=== PATIENT | male | born 1945 | race Caucasian/White ===

== ENCOUNTER 2023-12-23 13:33 | Outpatient (REF) | payer MEDICARE, SELFPAY ==
--- NOTE | ~2023-12-23 | MR_ITS ---
EXAMINATION: MR BRAIN WITHOUT CONTRAST CLINICAL INFORMATION: Dementia COMPARISON: None available. TECHNIQUE: MRI of the brain was obtained using routine sequences without contrast. FINDINGS: No acute intracranial hemorrhage or infarct. Encephalomalacic changes in the right frontal operculum, right parietal lobe, and right temporal lobe. Scattered and confluent periventricular and deep white matter T2/FLAIR hyperintensities, nonspecific however commonly seen with small vessel ischemic disease. Diffuse prominence of the sulci with associated ex vacuo dilation of the ventricles compatible with global cerebral atrophy. There is loss of normal flow void through the right petrous and cavernous ICA. No midline shift or hydrocephalus. Cavum septum pellucidum and vergae. No acute extra-axial fluid collections. The osseous structures are unremarkable. Partially empty sella. The pineal gland and remaining midline structures are unremarkable. No orbital pathology. Mild to moderate mucosal thickening of the right maxillary sinus. The mastoid air cells are clear. MR/MR head/brain wo con IMPRESSION: -No acute intracranial abnormalities. -Encephalomalacic changes involving the right MCA territory. -Loss of normal flow void through the right petrous and cavernous ICA most suggestive of chronic occlusion. -Chronic microangiopathy and global cerebral atrophy. Electronically signed by: Eugene Pedersen MD 12/23/2023 02:42 PM EDT
== END 2023-12-23 13:34 | disposition home or self-care (01) ==
LOC: HO.MRI 13:33
PROVIDERS: PCP Internal Medicine; Visit Provider Psychiatry & Neurology Neurology
DX: F03.90 Unspecified dementia, unspecified severity, without behavioral disturbance, psychotic disturbance, mood disturbance, and anxiety (principal)
CPT/HCPCS: 70551

== ENCOUNTER 2025-01-11 15:41 | Outpatient (AMB) | payer MEDICARE, SELFPAY ==
--- NOTE | 2025-01-11 15:44 | A.OFFVIS_ITS ---
Intake Visit Reasons: 2m dementia Accompanied by: Daughter Allergies No Known Allergies Allergy (Verified 01/11/25 15:50) Medication List - Last Reconciled 01/11/25 by Freya Sebastian CNP atorvastatin 80 mg PO BEDTIME bupropion HCl SR 100 mg PO QAM citalopram 20 mg PO DAILY clopidogrel 75 mg PO DAILY fluticasone propionate 50 mcg/actuation 2 sprays intranasal DAILY furosemide 20 mg PO DAILY isosorbide mononitrate ER 30 mg PO DAILY levothyroxine mcg PO lisinopril 10 mg PO DAILY memantine 10 mg PO BID nitroglycerin 0.4 mg sublingual HPI Comments Details: 79-year-old man with moderately severe cognitive dysfunction has significant brain atrophy and a moderate sized right MCA chronic infarct. 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 (With past medical history of hypertension, coronary disease, occluded right internal carotid artery that was discovered in 2015. He was diagnosed with a stroke and near occlusion of left carotid artery. He had left carotid endarterectomy done. His recent CTA done in 2022 revealed significant left ICA stenosis and multiple other areas of intracranial atherosclerotic stenosis.) He was here with his daughter. He was living with his and her health was not that great. He was taking bupropion, no medication side effects. His daughter noted mood was initially better was medication, but not so much anymore. He said mood was okay. He enjoyed reading historical books and was reading book about the Trump administration. He was walking with cane or walker when outside, no falls. Sleep was okay. [facility] Medical History (Updated 01/11/25 @ 15:49 by Freya Sebastian CNP) Cerebral infarct Alcohol abuse Alzheimer dementia Multifactorial dementia Intracranial atherosclerosis Review of Systems Const Denies chills, Denies daytime sleepiness, Denies difficulty sleeping, Denies fatigue, Denies fever(s), Denies frequent falls, Denies headache(s), Denies increased appetite, Denies poor appetite, Denies snoring, Denies weakness, Denies weight gain and Denies weight loss Eyes Denies loss of vision ENT Denies vertigo, Denies dizziness and Denies headache(s) Card Denies chest pain at rest, Denies chest pain with activity, Denies syncope, Denies leg edema and Denies palpitations Resp Denies snoring GI Denies constipation, Denies heartburn, Denies diarrhea and Denies nausea Denies urinary frequency, Denies urinary incontinence and Denies urinary urgency Musc Denies abnormal gait, Denies numbness and Denies tingling Skin/Breast Denies dry skin and Denies rash Neuro Denies abnormal gait, Denies vertigo, Denies dizziness, Denies syncope, Denies frequent falls, Denies headache(s), Denies lack of coordination, Denies loss of vision, Reports memory loss, Denies numbness, Denies restless legs, Denies sei zure-like activity, Denies tingling, Denies paresthesias, Denies tremor(s) and Denies weakness Psych Denies anxiety, Denies depression, Denies auditory hallucinations, Reports memory loss, Denies visual hallucinations and Denies suicidal ideation Endo Denies fatigue and Denies palpitations Physical Exam Const Other: General Appearance:? normal, in no acute distress. Skin:? no rashes, no significant birthmarks. Heart:? S1, S2 normal, no murmurs. Lungs:? clear anteriorly and posteriorly. Extremities:? no edema. Psych:? alert, cooperative with exam. Neuro Other: Mental Status:?Alert and awake with decreased spontaneity and fluency of speech. Comprehension intact. Somewhat flat affect. Cranial Nerves:?Pupils are equal, round and reactive to light. External occular muscles are intact. Visual wise are full. Face is symmetrical. Facial sensations are normal. Tongue is midline. Palate elevates symmetrically. Shoulder shrugging is normal. Hearing to bedside conversation is normal. Sensory Exam:?....? Coordination:?No ataxia,?no titubation.? Gait Exam: Slow and cautious with stooped posture and cane. Cerebellar Signs:?[id number] is okay. Extrapyramidal System:?No tremor, rigidity with normal facial expressions.? Pronator Drift:?Not present.? Involuntary Movements:?No tremors seen.? Speech:?Normal.? Results Reviewed Results Reviewed: MRI brain WO at [facility] [place] in Dec 2023: Mod to sev diff atrophy, large R mid MCA infarct, mild to mod MVD CTA brain and neck at [place] in Feb 2023: 85% L ICA stenosis, occluded R ICA, m ultiple intracranial athesclerotic stenoses. Assessment & Plan Assessment & Plan (1) Multifactorial dementia: Code(s): F03.90 - Unspecified dementia, unspecified severity, without behavioral disturbance, psychotic disturbance, mood disturbance, and anxiety Category: Medical Plan: Discussed option to try increased dose of bupropion, declining at this time. Continue bupropion HCL ER (SR) tablet 100mg 1 tablet in the morning. Continue memantine 10mg 1 tablet twice a day. Stay physically, socially, and intellectually active. (2) Alzheimer dementia: Code(s): G30.9 - Alzheimer's disease, unspecified; F02.80 - Dementia in other diseases classified elsewhere, unspecified severity, without behavioral disturbance, psychotic disturbance, mood disturbance, and anxiety Category: Medical Qualifiers: Alzheimer's disease onset: unspecified onset Dementia severity: unspecified severity Dementia behavioral or psychological symptom: with mood disturbance Qualified Code(s): G30.9 - Alzheimer's disease, unspecified; F02.83 - Dementia in other diseases classified elsewhere, unspecified severity, with mood disturbance (3) Intracranial atherosclerosis: Code(s): I67.2 - Cerebral atherosclerosis Category: Medical (4) History of cerebral infarction: Code(s): Z86.73 - Personal history of transient ischemic attack (TIA), and cerebral infarction without residual deficits Category: Medical Plan . Medications: Changed From bupropion HCl SR 100 mg PO QAM To bupropion HCl SR 100 mg PO QAM 90 tabs 1RF 90 days Coding Level of Care Code Est Pt Level 4 (74367) Diagnoses Multifactorial dementia F03.90 Alzheimer's dementia with mood disturbance, unspecified dementia severity, unspecified timing of dementia onset G30.9; F02.83 Alzheimer's disease onset: unspecified onset Dementia severity: unspecified severity Dementia behavioral or psychological symptom: with mood disturbance Intracranial atherosclerosis I67.2 History of cerebral infarction Z86.73
--- OUTSIDE RECORDS SUMMARY | 2025-01-11 18:29 | XMS_ITS | Clinical Summary ---
Author Organization [facility] Address [address] [address] [address] Phone Care Team Providers Care Inspection Supervisor Name Role Phone Rene Merino MD Primary Care Provider [phone] Allergies Active Allergy Reactions Criticality Noted Date Comments Hydrochlorothiazide 07/13/2019 No reaction documented. Medications aspirin 81 mg EC tablet Take 1 Tab by mouth daily. 03/12/20 20 Active betamethasone, augmented, (DIPROLENE) 0.05 % ointment Apply to the affected area as instructed 1-2 times daily. Avoid use on face, armpit, groin, genitals. 02/23/20 20 Active vitamin B complex (B COMPLETE ORAL) Take 1 Tablet by mouth daily. Active cholecalciferol (VITAMIN D-3) 50 mcg (2,000 unit) tablet TAKE 1 TABLET BY MOUTH EVERY DAY 05/28/19 21 Active LORazepam (ATIVAN) 0.5 mg tablet Take 1 Tablet by mouth daily as needed for Anxiety (or insomnia). 02/08/20 24 Active memantine (NAMENDA) 5 mg tablet Take 1 Tablet by mouth 2 times daily. Active melatonin 10 mg tablet Take 1 Tablet by mouth at bedtime. Active multivit-min/fol ic acid/vit K1 (MULTI FOR HIM, NO IRON, ORAL) MULTIPLE VITAMINS-MINE RALS (MULTI FOR HIM 50+) TAB: Take 1 Tablet by mouth daily. Active triamcinolone (KENALOG) 0.1 % cream as needed. 11/07/19 23 Active clopidogreL (PLAVIX) 75 mg tablet TAKE 1 TABLET BY MOUTH EVERY DAY 90 tablet 1 07/09/19 25 Active cetirizine (ZyrTEC) 10 mg tablet Take 1 tablet (10 mg total) by mouth 1 (one) time each day. 90 each 1 09/22/19 25 Active fluticasone propionate (FLONASE) 50 mcg/actuation nasal spray Administer 2 sprays into each nostril 1 (one) time each day. Shake gently. Before first use, prime pump. After use, clean tip and replace cap. 16 g 1 09/22/19 25 026 Active citalopram (CeleXA) 20 mg tablet TAKE 1 TABLET BY MOUTH EVERY DAY 90 tablet 1 10/04/19 25 Active atorvastatin (LIPITOR) 80 mg tablet Take 1 tablet (80 mg total) by mouth at bedtime. 90 tablet 1 11/02/19 25 Active levothyroxine (SYNTHROID, LEVOTHROID) 75 mcg tablet Take 1 tablet (75 mcg total) by mouth 1 (one) time each day before breakfast. TAKE 1 TABLET BY MOUTH DAILY. THU-THU AND 2 TABS ON THURSDAY 102 tablet 1 11/02/19 25 Active nitroglycerin (NITROSTAT) 0.[address] 1 tablet (0.4 mg total) under the tongue if needed for chest pain. If pain not resolved after taking 3 tablets go directly to the ER 90 tablet 1 11/02/19 25 Active isosorbide mononitrate (IMDUR) 30 mg 24 hr tablet TAKE 1 TABLET BY MOUTH 1 TIME EACH DAY. DO NOT CRUSH OR CHEW. 90 tablet 1 12/31/19 25 Active furosemide (LASIX) 20 mg tabletIndication s:Venous insufficiency (chronic) (peripheral),Chr onic kidney disease, stage 3a (CMS/HCC V24, CMS/HCC V28) TAKE 1 TABLET BY MOUTH EVERY DAY 90 tablet 3 12/31/19 25 Active lisinopriL (PRINIVIL,ZESTRI L) 10 mg tablet TAKE 1 TABLET BY MOUTH EVERY DAY 90 tablet 3 12/31/19 25 Active isosorbide mononitrate (IMDUR) 30 mg 24 hr tablet Take 1 tablet (30 mg total) by mouth 1 (one) time each day. Do not crush or chew. 90 each 1 07/05/19 25 025 Discontinued lisinopriL (PRINIVIL,ZESTRI L) 10 mg tablet TAKE 1 TABLET BY MOUTH EVERY DAY 90 tablet 1 07/08/19 25 025 Discontinued furosemide (LASIX) 20 mg tabletIndication s:Venous insufficiency (chronic) (peripheral),Chr onic kidney disease, stage 3a ([facility] V24, [facility] V28) TAKE 1 TABLET BY MOUTH EVERY DAY 90 tablet 1 07/08/19 025 Discontinued Active Problems Problem Noted Date Diagnosed Date Syncope and collapse 09/02/2022 Overview (06/14/2024): August 2022 - syncopal episode - scheduled for a carotid artery ultrasound as well as a 48-hour Holter monitor with carotid ultrasound showing complete occlusion of the right ICA with right subclavian stenosis stenosis in the right external carotid artery and additionally there was a greater than 70% stenosis in the left internal carotid artery as well as elevated Doppler velocities in the left external carotid artery and then Holter monitor showing normal sinus rhythm with sinus bradycardia with rates from 44 to 103 bpm and average of 61 bpm February 2023 - admitted to [facility] for left CEA complications of postoperative bleeding and syncopal event Assessment & Plan (06/14/2024 12:36 PM EST): No further episodes of syncope following successful CEA. No further workup or changes for now. Insomnia 09/01/2022 Hyperkalemia 09/24/2021 Chest pain 09/24/2021 Venous insufficiency of both lower extremities 1 05/12/2019 History of non-ST elevation myocardial infarctio n (NSTEMI) 03/12/2020 Overview (03/29/2024): 02/2020, s/p stenting x2 RCA CAD (coronary artery disease) 02/27/2020 Overview (06/14/2024): February 2020 - NSTEMI with stenting of the ostial RCA and medical therapy of moderate LAD artery stenosis Assessment & Plan (06/14/2024 12:36 PM EST): Catheterization from February 2020 showed significant RCA disease status post RCA stent with medical therapy of moderate LAD disease. Echocardiogram from February 2023 showed preserved LV systolic function LVEF 55-65%, no regional wall motion abnormalities. No anginal symptoms. Continue with aspirin, atorvastatin, clopidogrel, furosemide, isosorbide and lisinopril. We discussed risk reduction through lifestyle choices including healthy diet, routine exercise and weight management. Superficial thrombophlebitis 11/14/2019 Overview (03/29/2024): Left leg Hypothyroidism 11/14/2019 Snoring 11/02/2019 Overview (03/29/2024): 02/2021 Home Sleep Study did not reveal sleep apnea or nocturnal hypoxia. Normocytic anemia 11/02/2019 Hearing loss 11/02/2019 Chronic kidney disease (CKD) , stage III (moderate) (CMS/HCC V24, CMS/[facility] V28) 11/02/2019 Mild cognitive impairment 10/21/2019 Overview (03/29/2024): Per neuropsych eval 09/2019, secondary to stroke from 2014. Also some findings of depression. Spinal stenosis of lumbar re gion with neurogenic claudication 08/16/2019 Carotid stenosis, right 08/16/2019 Overview (03/29/2024): Not a candidate for surgical intervention, managed medically Varicose veins of legs 07/13/2019 Recurrent major depression i n partial remission (CMS/[facility] V24) 07/13/2019 Psoriasis 07/13/2019 Memory loss 07/13/2019 Overview (03/29/2024): Mild cognitive impairment w/ memory loss. 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 Hypercholesteremia 07/13/2019 Assessment & Plan (06/14/2024 12:36 PM EST): October 2023 - LDL 58. Continue with atorvastatin. Essential hypertension 07/13/2019 Assessment & Plan (06/14/2024 12:36 PM EST): Borderline controlled. Continue to monitor. Continue with furosemide, isosorbide and lisinopril. Cerebrovascular accident (CVA) (CMS/HCC V24, CMS /HCC V28) 07/13/2019 Overview (06/14/2024): right hemispheric CVA in the setting of an occluded right carotid artery with residual left arm and leg weakness Assessment & Plan (06/14/2024 12:36 PM EST): No new or worsening neurologic symptoms. Status post successful CEA with known total occlusion on right side. Continue with aspirin, atorvastatin, clopidogrel, furosemide, isosorbide and lisinopril. We discussed risk reduction through lifestyle choices including healthy diet, routine exercise and weight management. Colon polyps 07/13/2019 Chronic bilateral low back pain 07/13/2019 Cataract 07/13/2019 Overview (03/29/2024): Bilaterally Anxiety 07/13/2019 Encounters Date Type Department Care Team Description 10/17/2024 10:56 AM EDT - 10/17/2024 11:07 AM EDT Emergency [facility] Emergency [address] [place] [address] Discharge Disposition: ED Dismiss - Never Arrived 10/13/2024 Telephone Adult Medicine [address] [address] Rene Merino MD from Last 3 Months Immunizations Name Administration Dates Next Due Influenza trivalent, 0.5mL ( Fluad) 65yo and older 02/08/2024,03/03/2022,02/07/2021,02/22,03/01/2019,02/25/2018,02/23/2017 Pfizer (ages 12 & older) Biv alent, COVID-19 03/03/2022 Pfizer SARS-CoV-2 COVID-19, mRNA, LNP-S, preservative free 08/15/2021 Pneumococcal conjugate 13 va lent (Prevnar 13, PCV13) 2mo and older 03/02/2015 Pneumococcal polysaccharide 23 valent (Pneumovax 23) 2yo and older 02/07/2016,11/29/2010 Tdap Tetanus diptheria acell ular pertussis (Boostrix; Adacel) 7yo and older 03/02/2015 Surgical History Surgery Date Site/Laterality Comments COLONOSCOPY 10/25/2015 PROCEDURE: HISTORICAL COLONOSCOPY; COMMENT: 4 types polyps: adenomatous, hyperplastic, inflammatory and lymphoid. No path report. Medical History Medical History Date Comments Hypercholesteremia 07/13/2019 DX:Hyperchole steremia HTN (hypertension) 07/13/2019 DX:HTN (hyper tension) Recurrent major depression i n partial remission (CMS/HCC V24) 07/13/2019 DX:Recurrent major depressio n in partial remission (HCC) Varicose veins of legs 07/13/2019 DX:Varico se veins of legs History of stroke 07/13/2019 DX:History of stroke; COMMENT: Due to internal carotid artery occlusion, right. Anxiety 07/13/2019 DX:Anxiety CVD (cerebrovascular disease) 07/13/2019 DX :CVD (cerebrovascular disease) Chronic bilateral low back pain 07/13/2019 DX:Chronic bilateral low back pain Colon polyps 07/13/2019 DX:Colon polyps Psoriasis 07/13/2019 DX:Psoriasis Memory loss 07/13/2019 DX:Memory loss; COMMENT: Mild cognitive impairment w/ memory loss. Cataract 07/13/2019 DX:Cataract; COM MENT: Bilaterally Lumbar disc herniation 07/13/2019 DX:Lumbar disc herniation; COMMENT: L4-5. Hypothyroidism 11/14/2019 DX:Hypothyroidis m Superficial thrombophlebitis 11/14/2019 DX: Superficial thrombophlebitis; COMMENT: Left leg Family History Medical History Relation Name Comments Diabetes Brother Coronary artery disease Father PVD, sudden deth at 61, diabetes Stroke Mother Diabetes Paternal Grandfather Hypertension Sister Diabetes Son Relation Name Status Comments Brother Father Mother Paternal Grandfather Sister Son Social History Tobacco Use Types Packs/Day Years Used Date Smoking Tobacco: Former Cigarettes Q uit: 1993 Smokeless Tobacco: Never Tobacco Cessation:Counseling Given: Not Answered Alcohol Use Standard Drinks/Week Comments Yes 14 (1 standard drink = 0.6 oz pu re alcohol) Sex and Gender Information Value Date Recorded Sex Assigned at Not on file Legal Sex Male 1:07 AM EST Gender Identity Not on file Sexual Orientation Not on file Obstetrics History Last Filed Vital Signs Vital Sign Reading Time Taken Comments Blood Pressure 104/60 09/21/2024 3:49 PM EDT Pulse 50 09/21/2024 3:49 PM EDT Temperature 36.2 C (97.1 F) 09/21/2024 3:49 PM EDT Respiratory Rate - - Oxygen Saturation 97% 09/21/2024 3:49 PM EDT Inhaled Oxygen Concentration - - Weight 64 kg (141 lb) 09/21/2024 3:49 PM EDT Height 172.7 cm (5' 7.99 ) 09/21/2024 3:49 PM ED T Body Mass Index 21.44 09/21/2024 3:49 PM EDT Plan of Treatment Upcoming Encounters Date Type Department Care Team (Late st Contact Info) Description 02/23/2025 3:30 PM EDT Office Visit [facility] [address] [place] [address] Juventino Black MD [address] [place] [address] [address] [place] [address] 04/04/2025 3:30 PM EST Office Visit Adult Medicine [address] [phone] Rene Merino MD [address] [place] [address] Health Maintenance Due Date Last Done Comments Zoster Vaccines (1 of 2) 1964 RSV Immunization Adult Patients (1 - 1-dose 75+ series) 2020 Falls Risk Assessment 04/12/2022 Social Influencers of Health Screening 04/12/2022 Medicare Annual Wellness Visit 03/14/2023 03/14/2022 Depression Screening 05/04/2024 COVID-19 Vaccine (8 - Pfizer risk season) 2025 03/21/2024, 04/17/2023, 04/08/2023, Additional history exists Influenza Vaccine (#1) 2025 , 02/08/2024, 04/17/2023, Additional history exists DTaP,Tdap,and Td Vaccines (3 - Td or Tdap) 03/02/2025 03/02/2015, 09/01/2004 Hypertension/CHF/CAD Annual BMP Blood Test 09/21/2025 09/21/2024, 02/08/2024, 02/08/2024, Additional history exists Cholesterol Screening (Lipid Panel) 09/21/2029 09/21/2024, 10/28/2023, 10/28/2023, Additional history exists Pneumococcal Vaccine: 50+ Years Completed 02/07/2016, 03/02/2015, 11/29/2010 Hepatitis C Screening Completed 02/20/2017 HIB Vaccines Aged Out No longer eligi ble based on patient's age to complete this topic HPV Vaccines Aged Out No longer eligi ble based on patient's age to complete this topic Hepatitis A Vaccines Aged Out No long er eligible based on patient's age to complete this topic Hepatitis B Vaccines Aged Out No long er eligible based on patient's age to complete this topic IPV Vaccines Aged Out No longer eligi ble based on patient's age to complete this topic MMR Vaccines Aged Out No longer eligi ble based on patient's age to complete this topic Meningococcal ACWY Vaccine Aged Out N o longer eligible based on patient's age to complete this topic Meningococcal B Vaccine Aged Out No l onger eligible based on patient's age to complete this topic RSV Immunization Patients Under 20 months Aged Out No longer eligible based on patient's age to complete this topic Varicella Vaccines Aged Out No longer eligible based on patient's age to complete this topic Procedures Procedure Name Priority Date/Time Associated Diagnosis Comments BASIC METABOLIC PANEL Routine 09/21/2024 4:37 PM EDT Essential hypertension LIPID PANEL WITH REFLEX TO DIRECT LDL Routine 09/21/2024 4:37 PM EDT Hypercholesteremia from Last 3 Months or Most Recently Relevant to Health Maintenance Results * Lipid panel with reflex to direct LDL (09/21/2024 4:37 PM EDT) Cholesterol 121 0 - 200 mg/dL LAB CHEMISTRY METHOD 09/21/2024 8:26 PM EDT [facility] Triglycerides 63 0 - 150 mg/dL LAB CHEMISTRY METHOD 09/21/2024 8:26 PM EDT [facility] HDL 73 >=40 mg/dL LAB CHEMISTRY METHOD 09/21/2024 8:26 PM EDT [facility] LDL Calculated 35 0 - 100 mg/dL LAB CHEMISTRY METHOD 09/21/2024 8:26 PM EDT [facility] VLDL Cholesterol Abebe 12.6 mg/dL LAB CHEMISTRY METHOD 09/21/2024 8:26 PM EDT [facility] Non HDL Chol. (LDL+VLDL) 48 <145 mg/dL LAB CHEMISTRY METHOD 09/21/2024 8:26 PM EDT [facility] Chol/HDL Ratio 1.7 0.0 - 4.4 LAB CHEMISTRY METHOD 09/21/2024 8:26 PM EDT [facility] Blood Venous blood specimen / Unknown Venipuncture / Unknown 09/21/2024 4:37 PM EDT 09/21/2024 4:37 PM EDT Nicol[facility] LAB BLOOD ORDERABLES Fi nal Result [facility] [address] [place] [address], * Basic metabolic panel (09/21/2024 4:37 PM EDT) Sodium 145 133 - 145 mmol/L LAB CHEMISTRY METHOD 09/21/2024 8:24 PM EDT [facility] Potassium 4.6 3.5 - 5.5 mmol/L LAB CHEMISTRY METHOD 09/21/2024 8:24 PM EDT [facility] Chloride 109 96 - 110 mmol/L LAB CHEMISTRY METHOD 09/21/2024 8:24 PM EDT [facility] CO2 30 21 - 32 mmol/L LAB CHEMISTRY METHOD 09/21/2024 8:24 PM [facility] Anion Gap 6 3 - 11 LAB CHEMISTRY METHOD 09/21/2024 8:24 PM EDT [facility] Glucose 84 70 - 100 mg/dL LAB CHEMISTRY METHOD 09/21/2024 8:24 PM T [facility] BUN 20 5 - 25 mg/dL LAB CHEMISTRY METHOD 09/21/2024 8:24 PM [facility] Creatinine 1.11 0.70 - 1.30 mg/dL LAB CHEMISTRY METHOD 09/21[facility]24 [facility] eGFR 68 >=60 mL/min/1. 73m2 LAB CHEMISTRY METHOD 09/21/2024 8:24 PM T [facility] Comment:Calculation based on the Chronic Kidney Disease Epidemiology Collaboration (CKD-EPI) equation refit without adjustment for race. BUN/Creatinine Ratio 18.0 LAB CHEMISTRY METHOD 09/21/2024 8:24 PM [facility] Calcium 9.1 8.5 - 10.5 mg/dL LAB CHEMISTRY METHOD 09/21/2024 8:24 PM T [facility] Blood Venous blood specimen / Unknown Venipuncture / Unknown 09/21/2024 4:37 PM EDT 09/21/2024 4:37 PM EDT Nicolás WOOD LAB BLOOD ORDERABLES Fi nal Result [facility] [address] [place] [address], from Last 3 Months or Most Recently Relevant to Health [place] [phone] [employer] Advance Directives Documents on File Type Date Recorded Patient Veneer Layer Expl anation Health Care Decision (hx) 02/11/2023 HE ALTH CARE PROXY Care Teams Inspection Supervisor Relationship Specialty Start Date End Date Rene Merino MD [address] [place] [address] [phone] PCP - General Internal Medicine 05/26/24
--- OUTSIDE RECORDS SUMMARY | 2025-01-11 18:29 | XMS_ITS | Continuity of Care Document ---
Author Organization [facility] Address [address] [place] [address] Problems Unknown Problems Results No Results Allergies, adverse reactions, alerts No known allergies and adverse reactions Immunizations Vaccine Route Date Status Covid-19 04/17/2023 Completed influenza 04/17/2023 Completed influenza 02/10/2024 Completed Medications No administered medications reported Vital Signs Date Vital Result Comment 03/15/2023 Inhaled Oxygen Concentration 21.0 % N Temperature 99 [degF] N Oxygen Saturation 99 % N Heart Rate 58 /min N Blood Pressure Systolic 162 mm[Hg] N Blood Pressure Diastolic 76 mm[Hg] N Body Height 68 [in_i] N Body Weight 135 [lb_av] N Body Mass Index 20.5 kg/m2 N 07/30/2023 Inhaled Oxygen Concentration 21.0 % N Temperature 97.9 [degF] N Oxygen Saturation 98 % N Respiratory Rate 18 /min N Heart Rate 68 /min N Blood Pressure Systolic 138 mm[Hg] N Blood Pressure Diastolic 60 mm[Hg] N Body Height 68 [in_i] N 02/10/2024 Inhaled Oxygen Concentration 21.0 % N Temperature 98.3 [degF] N Oxygen Saturation 98 % N Heart Rate 58 /min N Blood Pressure Systolic 112 mm[Hg] N Blood Pressure Diastolic 60 mm[Hg] N Body Height 68 [in_i] N Social History Element Description Date Comment Sex assigned at Male Functional Status Category Condition Date Problem (Feeding: Independent) Feeding: Independ ent 03/15/2023 Problem (Bathing: Independen t (or in shower)) Bathing: Independent (or in shower) 03/15/2023 Problem (Grooming: Independe nt face/hair/teeth/ shaving (implements provided)) Grooming: Independent face/hair/teeth/ shaving (implements provided) 03/15/2023 Problem (Dressing: Independe nt (including buttons, zips, laces, etc.)) Dressing: Independent (including buttons, zips, laces, etc.) 03/15/2023 Problem (Bowels: Continent) Bowels: Continent Problem (Bladder: Continent) Bladder: Continent 03/15/2023 Problem (Toilet use: Indepen dent (on and off, dressing, wiping)) Toilet use: Independent (on and off, dressing, wiping) 03/15/2023 Problem (Transfers (bed to c hair and back): Independent) Transfers (bed to chair and back): Independent 03/15/2023 Problem (Mobility (on level surfaces): Independent (but may use any aid; for example, stick) >50 yards) Mobility (on level surfaces): Independent (but may use any aid; for example, stick) >50 yards 03/15/2023 Problem (Stairs: Independent) Stairs: Independen t 03/15/2023 Problem (Total score: 100) Total score: 100 03/04
--- OUTSIDE RECORDS SUMMARY | 2025-01-11 18:29 | XMS_ITS ---
Author Name [facility] Organization Unknown Care Team Organization Name Specialty Phone Email Start Date End Da te [facility] 12/21/2024 [facility] Primary Care 03/11/2022
== END 2025-01-11 16:05 | disposition home or self-care (01) ==
LOC: HO.HSM 15:42
PROVIDERS: PCP Internal Medicine; Visit Provider Registered Nurse
DX: F03.90 Unspecified dementia, unspecified severity, without behavioral disturbance, psychotic disturbance, mood disturbance, and anxiety (principal); G30.9 Alzheimer's disease, unspecified; F02.83 Dementia in other diseases classified elsewhere, unspecified severity, with mood disturbance; I67.2 Cerebral atherosclerosis; Z86.73 Personal history of transient ischemic attack (TIA), and cerebral infarction without residual deficits
CPT/HCPCS: 99214

== ENCOUNTER → 2025-01-11 15:41 | Outpatient (BNVA) | payer MEDICARE, SELFPAY | PROVIDERS: PCP Internal Medicine; Visit Provider Registered Nurse | DX: I67.2 Cerebral atherosclerosis (principal); G30.9 Alzheimer's disease, unspecified; F02.83 Dementia in other diseases classified elsewhere, unspecified severity, with mood disturbance; Z86.73 Personal history of transient ischemic attack (TIA), and cerebral infarction without residual deficits | CPT/HCPCS: 99212 ==